=== PATIENT | female | born 1975 ===

== ENCOUNTER 2019-02-23 05:15 | Day surgery (SDC) | payer OTHER ==
[~2019-02-23] VITALS: Ht 160 cm; Wt 78.9 kg
[2019-02-23] MEDS ORDERED: ZANTAC300 MG (05:32)
[2019-02-23] MEDS ORDERED: PHENERGAN25 MG (05:33)
== END 2019-02-23 13:00 | disposition home or self-care (01) ==
LOC: ER 05:15 → CIR.AMB 07:00 → ER 07:26 → SEC-K 07:26 → EDSTATUS 08:00 → SEC-K 10:56 → O/R 10:56 → CIR.AMB 13:00 → O/R 16:50
DX: O02.1 Missed abortion (principal); Z3A.10 10 weeks gestation of pregnancy

== ENCOUNTER 2021-01-08 11:12 | Emergency (ER) | payer OTHER ==
[~2021-01-08] VITALS: Ht 157.5 cm; Wt 81.6 kg
[~2021-01-08 11:12] MED LIST: PHENERGAN25 MG; ZANTAC300 MG
== END 2021-01-08 18:28 | disposition home or self-care (01) ==
LOC: ER 11:12
DX: R10.9 Unspecified abdominal pain (principal); M54.5 Low back pain